=== PATIENT | female | born 1975 | race Two or more races ===

== ENCOUNTER → 2020-12-25 | Day surgery (SDC) | payer BC ==
[~2020-12-25] VITALS: Ht 154.9 cm; Wt 50.0 kg
[2020-12-25 07:14] VITALS: BP 136/88
[2020-12-25] MEDS: IV RINGERS,LACTATED 1000ML 1,000 ML IV SCH (07:18)
[2020-12-25 08:17] VITALS: BP 107/69
--- NOTE | 2020-12-28 19:07 | PATHOLOGY ---
[facility] Accession Number: [id number] . 01 Material submitted: . stomach - GASTRIC BIOPSY. Modifiers: GASTRIC . 01 Clinical history: . ABDOMINAL PAIN EGD HISTORY OF H PYLORI, EPIGASTRIC P... . 02 Diagnosis: Gastric biopsies: - Chronic gastritis, mild to moderate, with focal intestinal metaplasia. . (JPM:mm; 12/28/2020) [facility] 12/28/2020 1536 Local . 02 Comment: Sections of the gastric biopsy reveal segments of gastric antral and gastric body mucosa showing mild to moderate chronic inflammation and focal intestinal metaplasia. A properly-controlled immunoperoxidase stain for Helicobacter is negative for Helicobacter organisms. There is no dysplasia or evidence of malignancy. . Special stain: Immunoperoxidase stain for Helicobacter on A1 . (JPM:mml; 12/28/2020) . 02 Electronically signed: . Mario Madison MD, Pathologist NPI- [id number] . 01 Gross description: . Received in formalin labeled "Aye, Van, gastric biopsy" are multiple shine-brown soft tissue fragments measuring in aggregate 1.2 x 0.5 x 0.3 cm. The specimen is submitted entirely in A1. ([facility]; 12/26/2020) GZA/GZA 12/26/2020 1044 Local . 02 Pathologist provided ICD-10: K29.50 . 02 CPT . 553355, [id number] Specimen Comment: A courtesy copy of this report has been sent to [phone], [phone] Specimen Comment: [id number] Specimen Comment: Report sent to / DR WILSON Performed at: 01 [facility] [address], [place] [id number] MD Shorty Bullard MD Phone: [phone] Performed at: [address] [id number] MD Mario Madison MD Phone: [phone]
== END | disposition home or self-care (01) ==
LOC: SURG 06:41
PROVIDERS: ATTEND Internal Medicine Gastroenterology
DX: R10.13 Epigastric pain (principal); K29.50 Unspecified chronic gastritis without bleeding; K31.89 Other diseases of stomach and duodenum; Z79.899 Other long term (current) drug therapy
CPT/HCPCS: 43239; 81025